=== PATIENT | female | born 1975 | race Hispanic/Latino ===

== ENCOUNTER → 2019-03-22 | Day surgery (SDC) | payer BC ==
[~2019-03-22] MED LIST: FENTANYL CITRATE/PF 100MCG/2 ML INJ ONE; HYOSCYAMINE 0.125 MG TAB ONE; LIDOCAINE HCL 2% LOCAL INJ 5 ML SDV VIAL INJ ONE; METOCLOPRAMIDE HCL 10 MG/2ML VIAL ONE; MIDAZOLAM HCL 2 MG/2 ML VIAL ONE; PANTOPRAZOLE 40 MG 10ML VIAL ONE; PROPOFOL IV EMULSION 10 MG/ML 50 ML VIAL ONE
--- OUTSIDE RECORDS SUMMARY | 2019-03-22 15:02 | XMS REPORT ---
[facility] Address Unknown Phone Unavailable Care Team Providers Care Esthetician Permanent Makeup Artist Name Role Phone SAPPHIRE MEJIA Unavailable Unavailable Problems This patient has no known problems. Allergies, Adverse Reactions, Alerts This patient has no known allergies or adverse reactions. Medications This patient has no known medications. Results Test Description Test Time Test Comments Text Results Atomic Results Result Comments OVA AND PARASITE EXAMINATION 2019-02-26 19:34:00 DIRECT SMEAR - O\T\P (BEAKER) (test nlri=141) No ova or parasites seen No ova or parasites seen CONCENTRATE SMEAR - O\T\P (BEAKER) (test sgjk=161) Positive - Ova/parasites seen; see Positive Ova & Parasite Exam for results. No ova or parasites seen TRICHROME SMEAR - O\T\P (BEAKER) (test ciyx=514) Positive - Ova/parasites seen; see Positive Ova & Parasite Exam for results. No ova or parasites seen Ova & Parasite screen positive. See Positive Ova & Parasite Exam for further results.STOOL CULTURE + SHIGA [id number] 16:16:00* Test Item Value Reference Range Comments CULTURE (BEAKER) (test qvmk=1399) No Salmonella, Shigella or Campylobacter isolated STOOL PATH [id number] 12:24:00* Test Item Value Reference Range Comments PATHOGEN EXAM CHARGED (BEAKER) (test upvf=6050) Done [id number] 07:59:00* Test Item Value Reference Range Comments MAGNESIUM (BEAKER) (test ehbv=581) 1.9 mg/dL 1.6-2.6 BASIC METABOLIC [id number] 07:59:00* Test Item Value Reference Range Comments SODIUM (BEAKER) (test ubml=280) 136 meq/L 136-145 POTASSIUM (BEAKER) (test wgcv=110) 3.9 meq/L 3.5-5.1 CHLORIDE (BEAKER) (test afrw=490) 107 meq/L 98-107 CO2 (BEAKER) (test ymtd=624) 23 meq/L 22-29 BLOOD UREA NITROGEN (BEAKER) (test vsfp=263) 10 mg/dL 7-21 CREATININE (BEAKER) (test gtqn=076) 0.63 mg/dL 0.57-1.25 GLUCOSE RANDOM (BEAKER) (test vajl=761) 101 mg/dL 70-105 CALCIUM (BEAKER) (test vqld=899) 9.2 mg/dL 8.4-10.2 EGFR (BEAKER) (test binn=1101) 104 mL/min/1.73 sq m ESTIMATED GFR IS NOT ACCURATE CREATININE CLEARANCE IN PREDICTING GLOMERULAR FILTRATION RATE. ESTIMATED GFR IS NOT APPLICABLE FOR DIALYSIS PATIENTS. HEPATIC FUNCTION [id number] 07:59:00* Test Item Value Reference Range Comments TOTAL PROTEIN (BEAKER) (test amsc=393) 6.8 gm/dL 6.0-8.3 ALBUMIN (BEAKER) (test wyjm=4623) 3.9 g/dL 3.5-5.0 BILIRUBIN TOTAL (BEAKER) (test kewc=436) 0.4 mg/dL 0.2-1.2 BILIRUBIN DIRECT (BEAKER) (test dlui=441) 0.2 mg/dL 0.1-0.5 ALKALINE PHOSPHATASE (BEAKER) (test gbqz=019) 68 U/L 40-150 AST (SGOT) (BEAKER) (test krgu=285) 13 U/L 5-34 ALT (SGPT) (BEAKER) (test doxe=829) 11 U/L 6-55 CBC W/PLT COUNT & AUTO [id number] 05:57:00* Test Item Value Reference Range Comments WHITE BLOOD CELL COUNT (BEAKER) (test bwud=362) 6.4 K/ L 3.5-10.5 RED BLOOD CELL COUNT (BEAKER) (test bpym=116) 4.36 M/ L 3.93-5.22 HEMOGLOBIN (BEAKER) (test zudb=123) 11.8 GM/DL 11.2-15.7 HEMATOCRIT (BEAKER) (test cavl=822) 36.9 % 34.1-44.9 MEAN CORPUSCULAR VOLUME (BEAKER) (test avxx=969) 84.6 fL 79.4-94.8 MEAN CORPUSCULAR HEMOGLOBIN (BEAKER) (test oqpm=990) 27.1 pg 25.6-32.2 MEAN CORPUSCULAR HEMOGLOBIN CONC (BEAKER) (test hcfv=786) 32.0 GM/DL 32.2-35.5 RED CELL DISTRIBUTION WIDTH (BEAKER) (test scor=924) 13.3 % 11.7-14.4 PLATELET COUNT (BEAKER) (test raez=783) 278 K/CU MM 150-450 MEAN PLATELET VOLUME (BEAKER) (test qfec=950) 9.9 fL 9.4-12.3 NUCLEATED RED BLOOD CELLS (BEAKER) (test lsfs=169) 0 /100 WBC 0-0 NEUTROPHILS RELATIVE PERCENT (BEAKER) (test jlfh=074) 59 % LYMPHOCYTES RELATIVE PERCENT (BEAKER) (test buax=023) 27 % MONOCYTES RELATIVE PERCENT (BEAKER) (test gvex=131) 8 % EOSINOPHILS RELATIVE PERCENT (BEAKER) (test caym=041) 5 % BASOPHILS RELATIVE PERCENT (BEAKER) (test jcvt=762) 1 % NEUTROPHILS ABSOLUTE COUNT (BEAKER) (test bnma=437) 3.76 K/ L 1.56-6.13 LYMPHOCYTES ABSOLUTE COUNT (BEAKER) (test xjqq=089) 1.75 K/ L 1.18-3.74 MONOCYTES ABSOLUTE COUNT (BEAKER) (test vgnc=882) 0.50 K/ L 0.24-0.36 EOSINOPHILS ABSOLUTE COUNT (BEAKER) (test vsqn=338) 0.32 K/ L 0.04-0.36 BASOPHILS ABSOLUTE COUNT (BEAKER) (test yvqj=234) 0.05 K/ L 0.01-0.08 IMMATURE GRANULOCYTES-RELATIVE PERCENT (BEAKER) (test allc=5522) 0 % 0-1 RAD, ABDOMEN SERIES W/ UPRIGHT PA [id number] 15:33:00Reason for exam:-> SBOShould this be performed at the bedside?->NoFINAL REPORT Abdominal series CLINICAL INDICATION: Small bowel obstruction COMPARISON: CT the abdomen and pelvis performed 02/19/2019 FINDINGS:Frontal view of the chest and upright and supine views of the abdomen were obtained. The heart is within normal limits of size. The lungs are clear. No pleural effusion or consolidation or pneumothorax. Surgical clips are seen in the right upper quadrant. No dilated loops of small or large bowel are identified. There is no free intraperitoneal air or air-fluid levels. Gas is seen distally in the rectum. There is a moderate amount of retained fecal material throughout the colon. IMPRESSION:Nonspecific nonobstructive bowel gas pattern. Signed: Michael Díaz MDReport Verified Date/Time: 02/21/2019 15:33:56 Reading Location: [facility] B1 [id number] Consult Reading Room A TOXIN [id number] 14:22:00* Test Item Value Reference Range Comments SHIGA TOXIN 1 (BEAKER) (test xaro=3445) Not detected Not detected SHIGA TOXIN 2 (BEAKER) (test wabq=3422) Not detected Not detected [id number] 08:20:00* Test Item Value Reference Range Comments MAGNESIUM (BEAKER) (test hriy=406) 1.8 mg/dL 1.6-2.6 BASIC METABOLIC [id number] 08:20:00* Test Item Value Reference Range Comments SODIUM (BEAKER) (test fgzq=804) 138 meq/L 136-145 POTASSIUM (BEAKER) (test nkdb=729) 3.6 meq/L 3.5-5.1 CHLORIDE (BEAKER) (test mimw=800) 107 meq/L 98-107 CO2 (BEAKER) (test kriu=751) 29 meq/L 22-29 BLOOD UREA NITROGEN (BEAKER) (test eoad=358) 6 mg/dL 7-21 CREATININE (BEAKER) (test zhkt=994) 0.64 mg/dL 0.57-1.25 GLUCOSE RANDOM (BEAKER) (test ilya=665) 92 mg/dL 70-105 CALCIUM (BEAKER) (test xkyp=400) 9.1 mg/dL 8.4-10.2 EGFR (BEAKER) (test kjhx=8447) 102 mL/min/1.73 sq m ESTIMATED GFR IS NOT ACCURATE CREATININE CLEARANCE IN PREDICTING GLOMERULAR FILTRATION RATE. ESTIMATED GFR IS NOT APPLICABLE FOR DIALYSIS PATIENTS. HEPATIC FUNCTION [id number] 08:20:00* Test Item Value Reference Range Comments TOTAL PROTEIN (BEAKER) (test hame=774) 6.8 gm/dL 6.0-8.3 ALBUMIN (BEAKER) (test obky=7187) 4.0 g/dL 3.5-5.0 BILIRUBIN TOTAL (BEAKER) (test uxil=307) 0.6 mg/dL 0.2-1.2 BILIRUBIN DIRECT (BEAKER) (test jjrm=193) 0.3 mg/dL 0.1-0.5 ALKALINE PHOSPHATASE (BEAKER) (test frnb=031) 67 U/L 40-150 AST (SGOT) (BEAKER) (test zuse=137) 14 U/L 5-34 ALT (SGPT) (BEAKER) (test yame=529) 10 U/L 6-55 CBC W/PLT COUNT & AUTO [id number] 07:58:00* Test Item Value Reference Range Comments WHITE BLOOD CELL COUNT (BEAKER) (test vznd=551) 7.3 K/ L 3.5-10.5 RED BLOOD CELL COUNT (BEAKER) (test ttkn=112) 4.41 M/ L 3.93-5.22 HEMOGLOBIN (BEAKER) (test exeg=169) 12.2 GM/DL 11.2-15.7 HEMATOCRIT (BEAKER) (test mepe=147) 38.3 % 34.1-44.9 MEAN CORPUSCULAR VOLUME (BEAKER) (test gjig=962) 86.8 fL 79.4-94.8 MEAN CORPUSCULAR HEMOGLOBIN (BEAKER) (test bzrn=321) 27.7 pg 25.6-32.2 MEAN CORPUSCULAR HEMOGLOBIN CONC (BEAKER) (test bclu=329) 31.9 GM/DL 32.2-35.5 RED CELL DISTRIBUTION WIDTH (BEAKER) (test nliu=107) 13.6 % 11.7-14.4 PLATELET COUNT (BEAKER) (test lxja=809) 286 K/CU MM 150-450 MEAN PLATELET VOLUME (BEAKER) (test sffn=490) 9.7 fL 9.4-12.3 NUCLEATED RED BLOOD CELLS (BEAKER) (test uisp=758) 0 /100 WBC 0-0 NEUTROPHILS RELATIVE PERCENT (BEAKER) (test bhla=845) 63 % LYMPHOCYTES RELATIVE PERCENT (BEAKER) (test zqvi=976) 26 % MONOCYTES RELATIVE PERCENT (BEAKER) (test rmyl=978) 6 % EOSINOPHILS RELATIVE PERCENT (BEAKER) (test ayyl=143) 4 % BASOPHILS RELATIVE PERCENT (BEAKER) (test ijbs=223) 1 % NEUTROPHILS ABSOLUTE COUNT (BEAKER) (test zboi=435) 4.62 K/ L 1.56-6.13 LYMPHOCYTES ABSOLUTE COUNT (BEAKER) (test ihte=345) 1.87 K/ L 1.18-3.74 MONOCYTES ABSOLUTE COUNT (BEAKER) (test vaqk=679) 0.46 K/ L 0.24-0.36 EOSINOPHILS ABSOLUTE COUNT (BEAKER) (test lwoj=046) 0.29 K/ L 0.04-0.36 BASOPHILS ABSOLUTE COUNT (BEAKER) (test avod=659) 0.04 K/ L 0.01-0.08 IMMATURE GRANULOCYTES-RELATIVE PERCENT (BEAKER) (test gvxa=9274) 0 % 0-1 [id number] 05:32:00* Test Item Value Reference Range Comments MAGNESIUM (BEAKER) (test dkdo=684) 1.7 mg/dL 1.6-2.6 BASIC METABOLIC [id number] 05:32:00* Test Item Value Reference Range Comments SODIUM (BEAKER) (test effe=740) 140 meq/L 136-145 POTASSIUM (BEAKER) (test rmkn=409) 3.3 meq/L 3.5-5.1 CHLORIDE (BEAKER) (test yumu=991) 108 meq/L 98-107 CO2 (BEAKER) (test lomi=370) 27 meq/L 22-29 BLOOD UREA NITROGEN (BEAKER) (test hkgo=676) 10 mg/dL 7-21 CREATININE (BEAKER) (test vkvj=139) 0.58 mg/dL 0.57-1.25 GLUCOSE RANDOM (BEAKER) (test bxvy=647) 91 mg/dL 70-105 CALCIUM (BEAKER) (test ohne=277) 8.4 mg/dL 8.4-10.2 EGFR (BEAKER) (test myyz=6220) 114 mL/min/1.73 sq m ESTIMATED GFR IS NOT ACCURATE CREATININE CLEARANCE IN PREDICTING GLOMERULAR FILTRATION RATE. ESTIMATED GFR IS NOT APPLICABLE FOR DIALYSIS PATIENTS. HEPATIC FUNCTION [id number] 05:32:00* Test Item Value Reference Range Comments TOTAL PROTEIN (BEAKER) (test yeec=246) 6.0 gm/dL 6.0-8.3 ALBUMIN (BEAKER) (test aqlr=4502) 3.6 g/dL 3.5-5.0 BILIRUBIN TOTAL (BEAKER) (test iupx=312) 0.8 mg/dL 0.2-1.2 BILIRUBIN DIRECT (BEAKER) (test wumb=936) 0.3 mg/dL 0.1-0.5 ALKALINE PHOSPHATASE (BEAKER) (test wdsx=049) 65 U/L 40-150 AST (SGOT) (BEAKER) (test hbmk=040) 14 U/L 5-34 ALT (SGPT) (BEAKER) (test rxma=979) 11 U/L 6-55 CBC W/PLT COUNT & AUTO [id number] 04:56:00* Test Item Value Reference Range Comments WHITE BLOOD CELL COUNT (BEAKER) (test bubv=783) 7.5 K/ L 3.5-10.5 RED BLOOD CELL COUNT (BEAKER) (test ydjs=209) 4.40 M/ L 3.93-5.22 HEMOGLOBIN (BEAKER) (test zxfr=876) 12.0 GM/DL 11.2-15.7 HEMATOCRIT (BEAKER) (test dfhs=645) 37.7 % 34.1-44.9 MEAN CORPUSCULAR VOLUME (BEAKER) (test mdlc=306) 85.7 fL 79.4-94.8 MEAN CORPUSCULAR HEMOGLOBIN (BEAKER) (test mhgt=877) 27.3 pg 25.6-32.2 MEAN CORPUSCULAR HEMOGLOBIN CONC (BEAKER) (test nuvf=732) 31.8 GM/DL 32.2-35.5 RED CELL DISTRIBUTION WIDTH (BEAKER) (test fyql=648) 13.6 % 11.7-14.4 PLATELET COUNT (BEAKER) (test prhp=672) 273 K/CU MM 150-450 MEAN PLATELET VOLUME (BEAKER) (test tqjo=034) 10.0 fL 9.4-12.3 NUCLEATED RED BLOOD CELLS (BEAKER) (test civr=785) 0 /100 WBC 0-0 NEUTROPHILS RELATIVE PERCENT (BEAKER) (test crij=271) 64 % LYMPHOCYTES RELATIVE PERCENT (BEAKER) (test grcy=776) 24 % MONOCYTES RELATIVE PERCENT (BEAKER) (test fpws=072) 7 % EOSINOPHILS RELATIVE PERCENT (BEAKER) (test fpcq=983) 4 % BASOPHILS RELATIVE PERCENT (BEAKER) (test ofml=922) 1 % NEUTROPHILS ABSOLUTE COUNT (BEAKER) (test osbc=989) 4.80 K/ L 1.56-6.13 LYMPHOCYTES ABSOLUTE COUNT (BEAKER) (test gqmw=745) 1.80 K/ L 1.18-3.74 MONOCYTES ABSOLUTE COUNT (BEAKER) (test dyjn=599) 0.53 K/ L 0.24-0.36 EOSINOPHILS ABSOLUTE COUNT (BEAKER) (test xnox=113) 0.26 K/ L 0.04-0.36 BASOPHILS ABSOLUTE COUNT (BEAKER) (test whgc=014) 0.04 K/ L 0.01-0.08 IMMATURE GRANULOCYTES-RELATIVE PERCENT (BEAKER) (test gdle=1201) 0 % 0-1 CT, [id number] 03:24:00FINAL REPORT EXAM: CT of the abdomen and pelvis, with contrast CLINICAL HISTORY: Abdominal pain. Intractable nausea and vomiting. TECHNIQUE: CT of the abdomen and pelvis was performed with intravenous contrast administration. This exam was performed according to our departmental dose optimization program which includes automated exposure control, adjustment of the mA and/or kV according to patient's size and/or use of iterative reconstructive technique. COMPARISON: None FINDINGS: LOWER CHEST: Within normal limits.LIVER: Within normal limits.BILE DUCTS: Within normal limits.GALL BLADDER: Status post cholecystectomy.PANCREAS: Within normal limits.SPLEEN: Within normal limits.ADRENALS: 1.3 x 1.1 cm left adrenal gland nodule (68 HU). Unremarkable right adrenal gland.KIDNEYS/URETERS: Within normal limits. URINARY BLADDER: Within normal limits.REPRODUCTIVE ORGANS: Within normal limits. BOWEL/MESENTERY: Multiple dilated fluid-filled small bowel loops which transition to decompressed small bowel in the right lower quadrant consistent with a small bowel obstruction. The transition point is in the anterior lower abdomen where there is focal narrowing of small bowel (axial image 59 - 60 and coronal image 35-36). Diffuse mural thickening of multiple ileal loops distal to the obstruction consistent with an enteritis (infectious, inflammatory or ischemic). Associated mesenteric congestion and small interloop ascites Small hiatal hernia. Colonic diverticulosis without acute diverticulitis. Normal appendix. PERITONEUM/RETROPERITONEUM: Small abdominal and pelvic ascites. No free air or fluid collection. VESSELS: Within normal limits. LYMPH NODES: No abdominal or pelvic lymphadenopathy.SOFT TISSUES: Small fat-containing umbilical hernia.BONES: Within normal limits. IMPRESSION:Status post cholecystectomy.Small bowel obstruction (early complete or partial) secondary to an enteritis (infectious, inflammatory or ischemic).Small abdominal and pelvic ascites. No fr ee intraperitoneal air.Colonic diverticulosis without acute diverticulitis. Smal l hiatal hernia.1.3 cm indeterminate left adrenal gland nodule for which a nonem ergent follow-up adrenal protocol CT/MRI is recommended. Signed: Dai Mcdonald Verified Date/Time: 02/19/2019 03:24:55 EN, [id number] 02:33:00* Test Item Value Reference Range Comments TEST URINE (BEAKER) (test roel=160) Negative URINALYSIS W/ REFLEX URINE [id number] 23:22:00* Test Item Value Reference Range Comments COLOR (BEAKER) (test rtpj=086) Light Yellow CLARITY (BEAKER) (test mfxo=250) Hazy SPECIFIC GRAVITY UA (BEAKER) (test tqmy=384) 1.013 1.001-1.035 PH UA (BEAKER) (test gipz=039) 7.5 5.0-8.0 PROTEIN UA (BEAKER) (test awqq=034) 10 mg/dL Negative GLUCOSE UA (BEAKER) (test xumn=409) Negative Negative KETONES UA (BEAKER) (test dgyi=617) Negative Negative BILIRUBIN UA (BEAKER) (test ooky=073) Negative Negative BLOOD UA (BEAKER) (test ynoa=020) Moderate Negative NITRITE UA (BEAKER) (test guhk=428) Negative Negative LEUKOCYTE ESTERASE UA (BEAKER) (test lyjg=842) Negative Negative UROBILINOGEN UA (BEAKER) (test ersa=428) 0.2 mg/dL 0.2-1.0 RBC UA (BEAKER) (test sioh=866) 4 /HPF WBC UA (BEAKER) (test tcbo=771) 1 /HPF SQUAMOUS EPITHELIAL (BEAKER) (test fdvn=451) 11 /HPF AMORPHOUS CRYSTALS (BEAKER) (test pkeg=9654) Rare YEAST (BEAKER) (test ssxc=0209) Few SOURCE(BEAKER) (test dlrs=8235) [id number] 23:20:00* Test Item Value Reference Range Comments LIPASE (BEAKER) (test oeov=707) 10 U/L 8-78 BASIC METABOLIC [id number] 23:20:00* Test Item Value Reference Range Comments SODIUM (BEAKER) (test klcu=103) 138 meq/L 136-145 POTASSIUM (BEAKER) (test ldcl=999) 3.6 meq/L 3.5-5.1 CHLORIDE (BEAKER) (test hzdg=846) 104 meq/L 98-107 CO2 (BEAKER) (test prpq=233) 27 meq/L 22-29 BLOOD UREA NITROGEN (BEAKER) (test hgps=538) 17 mg/dL 7-21 CREATININE (BEAKER) (test lqtn=918) 0.73 mg/dL 0.57-1.25 GLUCOSE RANDOM (BEAKER) (test jnbs=819) 114 mg/dL 70-105 CALCIUM (BEAKER) (test oiys=125) 9.7 mg/dL 8.4-10.2 EGFR (BEAKER) (test lbpv=8877) 87 mL/min/1.73 sq m ESTIMATED GFR IS NOT ACCURATE CREATININE CLEARANCE IN PREDICTING GLOMERULAR FILTRATION RATE. ESTIMATED GFR IS NOT APPLICABLE FOR DIALYSIS PATIENTS. HEPATIC FUNCTION [id number] 23:20:00* Test Item Value Reference Range Comments TOTAL PROTEIN (BEAKER) (test yocn=845) 7.4 gm/dL 6.0-8.3 ALBUMIN (BEAKER) (test gpqe=5770) 4.3 g/dL 3.5-5.0 BILIRUBIN TOTAL (BEAKER) (test wftu=916) 0.3 mg/dL 0.2-1.2 BILIRUBIN DIRECT (BEAKER) (test sjex=786) 0.1 mg/dL 0.1-0.5 ALKALINE PHOSPHATASE (BEAKER) (test hhck=558) 78 U/L 40-150 AST (SGOT) (BEAKER) (test zuau=689) 14 U/L 5-34 ALT (SGPT) (BEAKER) (test abpa=927) 11 U/L 6-55 CBC W/PLT COUNT & AUTO [id number] 23:05:00* Test Item Value Reference Range Comments WHITE BLOOD CELL COUNT (BEAKER) (test jxor=122) 9.3 K/ L 3.5-10.5 RED BLOOD CELL COUNT (BEAKER) (test iydt=035) 4.91 M/ L 3.93-5.22 HEMOGLOBIN (BEAKER) (test rmqu=877) 13.3 GM/DL 11.2-15.7 HEMATOCRIT (BEAKER) (test uuoy=679) 41.6 % 34.1-44.9 MEAN CORPUSCULAR VOLUME (BEAKER) (test emzj=724) 84.7 fL 79.4-94.8 MEAN CORPUSCULAR HEMOGLOBIN (BEAKER) (test tunf=082) 27.1 pg 25.6-32.2 MEAN CORPUSCULAR HEMOGLOBIN CONC (BEAKER) (test obhv=616) 32.0 GM/DL 32.2-35.5 RED CELL DISTRIBUTION WIDTH (BEAKER) (test jxcb=050) 13.4 % 11.7-14.4 PLATELET COUNT (BEAKER) (test owhi=980) 300 K/CU MM 150-450 MEAN PLATELET VOLUME (BEAKER) (test whpc=654) 10.0 fL 9.4-12.3 NUCLEATED RED BLOOD CELLS (BEAKER) (test jrnn=422) 0 /100 WBC 0-0 NEUTROPHILS RELATIVE PERCENT (BEAKER) (test gscd=542) 75 % LYMPHOCYTES RELATIVE PERCENT (BEAKER) (test vktu=601) 16 % MONOCYTES RELATIVE PERCENT (BEAKER) (test nhep=042) 6 % EOSINOPHILS RELATIVE PERCENT (BEAKER) (test qyoi=650) 2 % BASOPHILS RELATIVE PERCENT (BEAKER) (test ceaj=525) 1 % NEUTROPHILS ABSOLUTE COUNT (BEAKER) (test xdsx=294) 6.98 K/ L 1.56-6.13 LYMPHOCYTES ABSOLUTE COUNT (BEAKER) (test hash=054) 1.50 K/ L 1.18-3.74 MONOCYTES ABSOLUTE COUNT (BEAKER) (test nsgy=941) 0.54 K/ L 0.24-0.36 EOSINOPHILS ABSOLUTE COUNT (BEAKER) (test wnti=797) 0.20 K/ L 0.04-0.36 BASOPHILS ABSOLUTE COUNT (BEAKER) (test ndst=768) 0.06 K/ L 0.01-0.08 IMMATURE GRANULOCYTES-RELATIVE PERCENT (BEAKER) (test bzei=3591) 0 % 0-1 DIAG MAMM BILATERAL DAVID CAD [id number] 11:54:30 - DIAG MAMM BILATERAL DAVID CAD DIGITALBILATERAL DIGITAL DIAGNOSTIC MAMMOGRAM 3D/2D WITH CAD: 10/06/2018CLINICAL: Bilateral breast pain. Digital breast tomosynthesis was performed in addition to routine CC and MLO views. Current mammographic images were evaluated by either a Impact M-Vu or a [employer] ImageChecker CAD (computer aided detection system). Comparison is made to exams dated 12/09/2017 mammogram, 12/06/2016 mammogram, and 02/25/2011 mammogram - [facility]-. The tissue of both breasts is heterogeneously dense. This may lower the sensitivity of mammography. No suspicious mass, architectural distortion, malignant type calcification, or lymph node abnormality detected. Breast architecture is stable compared to prior exams.IMPRESSION: NEGATIVEThere is no mammographic kofi dence of malignancy. Resume annual screening mammography in one year. Hui Mortensen M.D. ar/:10/06/2018 11:54:30 [employer]el [employer] Mechanic: Dorothy hamlin , [facility]-FWletter sent: BIRADS 1-2 Normal Mammogram BI-RA DS: 1 Negative
--- OUTSIDE RECORDS SUMMARY | 2019-03-22 15:02 | XMS REPORT | Clinical Summary ---
Author Author GARFIELD [facility] Address Unknown Phone Unavailable Care Team Providers Care Clinical Trainer Name Role Phone Pcp, No PCP Unavailable Allergies No Known Allergies Medications End Date Status Medication Sig Dispensed Refills Start Date 02/17/2020 Active acetaminophen (TYLENOL) Take 2 30 tablet 0 325 MG tablet tablets (650 9 mg total) by mouth every 6 (six) hours as needed for Pain for up to 360 days. 03/24/2019 Active magnesium oxide (MAG-OX) Take 1 tablet 30 tablet 0 400 mg (241.3 mg (400 mg 9 magnesium) tablet total) by mouth daily for 30 days. 03/24/2019 Active polyethylene glycol Take 17 g by 14 each 0 (GLYCOLAX) 17 gram packet mouth daily 9 for 30 days. 03/24/2019 Active senna-docusate (SENOKOT Take 2 60 tablet 0 S) 8.6-50 mg per tablet tablets by 9 mouth nightly for 30 days. 03/24/2019 Active omeprazole (PRILOSEC) 20 Take 1 30 capsule 0 MG capsule capsule (20 9 mg total) by mouth daily for 30 days. Active Problems Problem Noted Date Abdominal cramping 02/19/2019 Intractable vomiting with nausea, unspecified vomiting type 02/19/2019 SBO (small bowel obstruction) 02/19/2019 Encounters Care Team Description Date Type Specialty 02/19/2019 Travel Benita, DO Lily Gutierrez Christopher Scott, MD Hoffman, Maria, MD SBO (small bowel obstruction) ([facility]) (Primary Dx); Intractable vomiting with nausea, unspecified vomiting type; Abdominal cramping; Hypokalemia; Hypomagnesemia 02/18/2019 [facility] General Internal Medicine - Encounter 02/22/2019 after 03/21/2018 Social History Date Tobacco Use Types Packs/Day Years Used Never Assessed Sex Assigned at Date Recorded Not on file Industry Job Start Date Occupation Not on file Not on file Not on file Travel End Travel History Travel Start No recent travel history available. Last Filed Vital Signs Time Taken Vital Sign Reading 02/22/2019 8:25 AM CDT Blood Pressure 119/67 02/22/2019 8:25 AM CDT Pulse 81 02/22/2019 8:25 AM CDT Temperature 35.8 C (96.5 F) 02/22/2019 8:25 AM CDT Respiratory Rate 18 02/22/2019 8:25 AM CDT Oxygen Saturation 96% - Inhaled Oxygen - Concentration 02/19/2019 8:47 AM CDT Weight 86.3 kg (190 lb 3.2 oz) 02/18/2019 10:28 PM CDT Height 154.9 cm (5' 1") 02/19/2019 8:47 AM CDT Body Mass Index 35.94 Plan of Treatment Not on file Procedures Comments Procedure Name Priority Date/Time Associated Diagnosis CBC W/PLT COUNT & AUTO Routine 02/22/2019 DIFFERENTIAL 5:28 AM CDT MAGNESIUM Routine 02/22/2019 5:28 AM CDT HEPATIC FUNCTION PANEL Routine 02/22/2019 5:28 AM CDT CBC W/PLT COUNT & AUTO Routine 02/22/2019 DIFFERENTIAL 5:28 AM CDT BASIC METABOLIC PANEL (7) Routine 02/22/2019 5:28 AM CDT XR ABDOMEN ACUTE SERIES Routine 02/21/2019 FLAT W UPRIGHT CHEST OR 3:20 PM CDT DECUBS CBC W/PLT COUNT & AUTO Routine 02/21/2019 DIFFERENTIAL 7:22 AM CDT MAGNESIUM Routine 02/21/2019 7:22 AM CDT HEPATIC FUNCTION PANEL Routine 02/21/2019 7:22 AM CDT CBC W/PLT COUNT & AUTO Routine 02/21/2019 DIFFERENTIAL 7:22 AM CDT BASIC METABOLIC PANEL (7) Routine 02/21/2019 7:22 AM CDT STOOL PATH CHARGE Routine 02/20/2019 10:40 PM CDT POSITIVE OVA & PARASITE Routine 02/20/2019 EXAM 10:40 PM CDT SHIGA TOXIN SCREEN Routine 02/20/2019 10:40 PM CDT OVA AND PARASITE Routine 02/20/2019 EXAMINATION 10:40 PM CDT STOOL CULTURE + SHIGA Routine 02/20/2019 TOXIN 10:40 PM CDT CBC W/PLT COUNT & AUTO Routine 02/20/2019 DIFFERENTIAL 4:00 AM CDT MAGNESIUM Routine 02/20/2019 4:00 AM CDT HEPATIC FUNCTION PANEL Routine 02/20/2019 4:00 AM CDT CBC W/PLT COUNT & AUTO Routine 02/20/2019 DIFFERENTIAL 4:00 AM CDT BASIC METABOLIC PANEL (7) Routine 02/20/2019 4:[address] ABDOMEN/PELVIS WITH IV STAT 02/19/2019 CONTRAST 2:54 AM CDT CBC W/PLT COUNT & AUTO STAT 02/18/2019 DIFFERENTIAL 10:53 PM CDT SCREEN, URINE STAT 02/18/2019 10:53 PM CDT URINALYSIS W/ REFLEX STAT 02/18/2019 URINE CULTURE 10:53 PM CDT HEPATIC FUNCTION PANEL STAT 02/18/2019 10:53 PM CDT BASIC METABOLIC PANEL (7) STAT 02/18/2019 10:53 PM CDT CBC W/PLT COUNT & AUTO STAT 02/18/2019 DIFFERENTIAL 10:53 PM CDT LIPASE STAT 02/18/2019 10:53 PM CDT after 03/21/2018 Results * CBC with platelet count + automated diff (02/22/2019 5:28 AM CDT) Only the most recent of 4 results within the time period is included. WBC 6.4 3.5 - 10.5 K/L [facility] RBC 4.36 3.93 - 5.22 M/L [facility] Hemoglobin 11.8 11.2 - 15.7 GM/DL [facility] Hematocrit 36.9 34.1 - 44.9 % [facility] MCV 84.6 79.4 - 94.8 fL [facility] MCH 27.1 25.6 - 32.2 pg [facility] MCHC 32.0 (L) 32.2 - 35.5 GM/DL [facility] RDW 13.3 11.7 - 14.4 % [facility] Platelets 278 150 - 450 K/CU MM [facility] MPV 9.9 9.4 - 12.3 fL [facility] nRBC 0 0 - 0 /100 WBC [facility] % Neutros 59 % [facility] % Lymphs 27 % [facility] % Monos 8 % [facility] % Eos 5 % [facility] % Baso 1 % [facility] # Neutros 3.76 1.56 - 6.13 K/L [facility] # Lymphs 1.75 1.18 - 3.74 K/L [facility] # Monos 0.50 (H) 0.24 - 0.36 K/L [facility] # Eos 0.32 0.04 - 0.36 K/L [facility] # Baso 0.05 0.01 - 0.08 K/L [facility] Immature 0 0 - 1 % [facility] Granulocytes-[facility] Specimen Blood Performing Organization Address City/State/Zipcode Phone Number [address] [address] [facility] * Magnesium (02/22/2019 5:28 AM CDT) Only the most recent of 3 results within the time period is included. Magnesium 1.9 1.6 - 2.6 mg/dL [facility] Specimen Blood Performing Organization Address [facility] [place] [address] [phone] [place] [address] * Hepatic function panel (02/22/2019 5:28 AM CDT) Only the most recent of 4 results within the time period is included. Protein, Total 6.8 6.0 - 8.3 gm/dL [facility] Albumin 3.9 3.5 - 5.0 g/dL [facility] Total Bilirubin 0.4 0.2 - 1.2 mg/dL [facility] Bilirubin, Direct 0.2 0.1 - 0.5 mg/dL [facility] Alkaline Phosphatase 68 40 - 150 U/L [facility] AST 13 5 - 34 U/L [facility] ALT 11 6 - 55 U/L [facility] Specimen Blood Performing Organization Address City/[facility] Phone Number [address] [address] [phone] [place] [address] * Basic metabolic panel (02/22/2019 5:28 AM CDT) Only the most recent of 4 results within the time period is included. Sodium 136 136 - 145 meq/L [facility] Potassium 3.9 3.5 - 5.1 meq/L [facility] Chloride 107 98 - 107 meq/L [facility] CO2 23 22 - 29 meq/L [facility] BUN 10 7 - 21 mg/dL [facility] Creatinine 0.63 0.57 - 1.25 mg/dL [facility] Glucose 101 70 - 105 mg/dL [facility] Calcium 9.2 8.4 - 10.2 mg/dL [facility] EGFR 104Comment: ESTIMATED GFR IS mL/min/1.73 sq m [facility] NOT ACCURATE CREATININE [facility] CLEARANCE IN PREDICTING GLOMERULAR FILTRATION RATE. ESTIMATED GFR IS NOT APPLICABLE FOR DIALYSIS PATIENTS. Specimen Blood Performing Organization Address City/State/Zipcode Phone Number [facility] [address] [place] [address] [facility] * XR abdomen acute series flat/uprt with uprt pa chest and/or decubs (02/21/2019 3:20 PM CDT) Specimen Narrative Performed At FINAL REPORT [facility] Abdominal series CLINICAL INDICATION: Small bowel obstruction COMPARISON: CT the abdomen and pelvis performed 02/19/2019 FINDINGS: Frontal view of the chest and upright and [...] of retained fecal material throughout the colon. IMPRESSION: Nonspecific nonobstructive bowel gas pattern. Signed: Michael Leyva MD Report Verified Date/Time:02/21/2019 15:33:56 Reading Location: [facility] B1 [id number] Consult Reading Room Procedure Note Interface, External Ris In - 02/21/2019 3:36 PM CDT FINAL REPORT Abdominal series CLINICAL INDICATION: Small bowel obstruction COMPARISON: CT the abdomen and pelvis performed 02/19/2019 FINDINGS: Frontal view of the chest and upright and [...] of retained fecal material throughout the colon. IMPRESSION: Nonspecific nonobstructive bowel gas pattern. Signed: Michael Leyva MD Report Verified Date/Time: 02/21/2019 15:33:56 Reading Location: [address] Consult Reading Room Performing Organization Address [facility] Phone Number [facility] * STOOL PATH CHARGE (02/20/2019 10:40 PM CDT) Pathogen exam charged Done [facility] Specimen Stool Performing Organization Address [facility] Phone Number [address] [address] [phone] [place] [address] * Shiga Toxin Screen (02/20/2019 10:40 PM CDT) Shiga toxin 1 Not detected Not detected [facility] Shiga toxin 2 Not detected Not detected [facility] Specimen Stool Performing Organization Address [facility] Cent[facility]ode Phone Number [address] [address] [facility] * Positive Ova & Parasite Exam (02/20/2019 10:40 PM CDT) Result Few Blastocystis hominis [facility] (A)Comment: * - Blastocystis [facility] species Specimen Stool Performing Organization Address [facility] Phone Number [address] [address] [facility] * Ova and Parasite Examination (02/20/2019 10:40 PM CDT) O&P Direct Smear No ova or parasites seen No ova or parasites seen [facility] O&P Concentrate Smear Positive - Ova/parasites seen; No ova or parasites seen [facility] see Positive Ova & Parasite [facility] Exam for results. (A) O&P Trichrome Smear Positive - Ova/parasites seen; No ova or parasites seen [facility] see Positive Ova & Parasite [facility] Exam for results. (A) Specimen Stool Narrative Performed At [facility] Ova & Parasite screen positive. See Positive Ova & Parasite Exam for further [facility] results. Performing Organization Address City/State/Zipcode Phone Number [facility] [address] [place] [address] [facility] * Stool culture + Shiga toxin (02/20/2019 10:40 PM CDT) Result No Salmonella, Shigella or [facility] Campylobacter isolated [facility] Specimen Stool Performing Organization Address City/State/Zipcode Phone Number [facility] [address] [place] [address] [facility] * CT abdomen/pelvis with IV contrast (02/19/2019 2:54 AM CDT) Specimen Narrative Performed At FINAL REPORT [employer] EXAM: CT of the abdomen and pelvis, with contrast CLINICAL HISTORY: Abdominal pain. Intractable nausea and vomiting. TECHNIQUE: CT of the abdomen and pelvis was performed with intravenous contrast administration.This exam was performed according to our departmental dose optimization program which includes automated exposure control, adjustment of the mA and/or kV according to patient's size and/or use of iterative reconstructive technique. COMPARISON:None FINDINGS: LOWER CHEST: Within normal limits. LIVER: Within normal limits. BILE DUCTS: Within normal limits. GALL BLADDER: Status post cholecystectomy. PANCREAS: Within normal limits. SPLEEN: Within normal limits. ADRENALS: 1.3 x 1.1 cm left adrenal gland nodule (68 HU). Unremarkable right adrenal gland. KIDNEYS/URETERS: Within normal limits. URINARY BLADDER: Within normal limits. REPRODUCTIVE ORGANS: Within normal limits. BOWEL/MESENTERY: Multiple dilated [...] limits. LYMPH NODES: No abdominal or pelvic lymphadenopathy. SOFT TISSUES: Small fat-containing umbilical hernia. BONES: Within normal limits. IMPRESSION: Status post cholecystectomy. Small bowel obstruction (early complete or partial) secondary to an enteritis (infectious, inflammatory or ischemic). Small abdominal and pelvic ascites. No free intraperitoneal air. Colonic diverticulosis without acute diverticulitis. Small hiatal hernia. 1.3 cm indeterminate left adrenal gland nodule for which a nonemergent follow-up adrenal protocol CT/MRI is recommended. Signed: Dai Mcdonald MD Report Verified Date/Time:02/19/2019 03:24:55 Procedure Note Interface, External Ris In - 02/19/2019 3:27 AM CDT FINAL REPORT EXAM: CT of the abdomen and [...] COMPARISON: None FINDINGS: LOWER CHEST: Within normal limits. LIVER: Within normal limits. BILE DUCTS: Within normal limits. GALL BLADDER: Status post cholecystectomy. PANCREAS: Within normal limits. SPLEEN: Within normal limits. ADRENALS: 1.3 x 1.1 cm left adrenal gland nodule (68 HU). Unremarkable right adrenal gland. KIDNEYS/URETERS: Within normal limits. URINARY BLADDER: Within normal limits. REPRODUCTIVE ORGANS: Within normal limits. BOWEL/MESENTERY: Multiple dilated [...] limits. LYMPH NODES: No abdominal or pelvic lymphadenopathy. SOFT TISSUES: Small fat-containing umbilical hernia. BONES: Within normal limits. IMPRESSION: Status post cholecystectomy. Small bowel obstruction (early complete or partial) secondary to an enteritis (infectious, inflammatory or ischemic). Small abdominal and pelvic ascites. No free intraperitoneal air. Colonic diverticulosis without acute diverticulitis. Small hiatal hernia. 1.3 cm indeterminate left adrenal gland nodule for which a nonemergent follow-up adrenal protocol CT/MRI is recommended. Signed: Dai Mcdonald MD Report Verified Date/Time: 02/19/2019 03:24:55 Performing Organization Address City/State/Zipcode Phone Number [facility] * Urinalysis w/Microscopic + Reflex to Culture (02/18/2019 10:53 PM CDT) Color, UA Light Yellow [facility] Clarity, UA Hazy [facility] Specific [place], UA 1.013 1.001 - 1.035 [facility] pH, UA 7.5 5.0 - 8.0 [facility] Protein, UA 10 mg/dL (A) Negative [facility] Glucose, UA Negative Negative [facility] Ketones, UA Negative Negative [facility] Bilirubin, UA Negative Negative [facility] Blood, UA Moderate (A) Negative [facility] Nitrite, UA Negative Negative [facility] Leukocytes, UA Negative Negative [facility] Urobilinogen, UA 0.2 0.2 - 1.0 mg/dL [facility] RBC, UA 4 /HPF [facility] WBC, UA 1 /HPF [facility] Squam Epithel, UA 11 /HPF [facility] Amorphous Crystals Rare [facility] Yeast Few [facility] Specimen Source [facility] Specimen Urine Performing Organization Address [facility] Phone Number [address] [address] [facility] * screen, urine (02/18/2019 10:53 PM CDT) Preg Test, Ur Negative [facility] Specimen Urine Performing Organization Address [facility] Phone Number [address] [address] [facility] * Lipase (02/18/2019 10:53 PM CDT) Lipase 10 8 - 78 U/L [facility] Specimen Blood Performing Organization Address [facility] Phone Number [address] [address] [facility] after 03/21/2018 Insurance Payer Benefit Subscriber ID Type Phone Address Plan / Group BLUE CROSS/BLUE [employer]IELD BCBS PPO xxxxxxxxxxxx PPO [phone] [address] [place] [address] CHOICE Advance Directives For more information, please contact: [address] [address] Date Inactivated Comments Code Status Date Activated 02/22/2019 1:47 PM Full Code 02/19/2019 5:25 AM This code status was determined by: Patient
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
[2019-03-22 19:45] VITALS: BP 121/88
--- NOTE | 2019-03-22 19:48 | Operative Report ---
DATE OF PROCEDURE: 03/22/2019 SURGEON: Gustavo Beltrán MD PROCEDURES: Esophagogastroduodenoscopy with balloon dilatation of pyloric channel stricture and biopsies and colonoscopy with polypectomy. INDICATION FOR EGD: Upper abdominal pain, bloating, early satiety. INDICATIONS FOR COLONOSCOPY: Sense of incomplete evacuation, constipation. MEDICATIONS: The patient was done under MAC, please see anesthesiologist's note. PROCEDURE IN DETAIL: With the patient in left lateral decubitus position, a flexible fiberoptic Olympus gastroscope was introduced into the esophagus under direct visualization without any difficulty. There was some patchy erythema noted in distal esophagus. A single erosion was also noted in the distal esophagus. The scope was then advanced with ease into the stomach. Mucosa overlying the antrum and the body revealed some patchy erythema and low-grade to moderate edema and biopsies were obtained, sent to stain for H. pylori. The pyloric channel was somewhat stenotic and that was dilated to size 20 mm per TTS balloon dilators. The scope was then advanced with ease into the second portion of the duodenum. Biopsies were obtained from the second portion and duodenal bulb to rule out sprue. The scope was then withdrawn back into the stomach and retroflexed. The mucosa overlying the fundus and cardia appeared to be within normal limits. The scope was then straightened out, it was subsequently withdrawn. The patient tolerated the procedure well. IMPRESSION: 1. Distal erosive esophagitis. 2. Gastritis, biopsied. Biopsies sent to stain for Helicobacter pylori. 3. Pyloric channel somewhat stenotic, dilated to size 20 mm per TTS balloon dilators. 4. Rule out sprue. PLAN: Follow up histology. Initiate Protonix 40 mg one p.o. q.a.m. a.c. PROCEDURE IN DETAIL: The patient was then turned around and after adequate lubrication of the anal canal, flexible fiberoptic Olympus colonoscope was inserted into the rectum with ease and advanced all the way to the cecum. Mucosa overlying the cecum appeared to be within normal limits. One polyp was snared from the ascending colon. In addition, a polyp was snared from the transverse colon. One polyp was hot biopsied from the descending colon. Diverticular disease was noted to involve the distal descending and the sigmoid colon. One minute hyperplastic-appearing polyp was hot biopsied from the rectum. The scope was then retroflexed into the distal rectum and small internal hemorrhoids were noted, none of which was actively bleeding. The scope was then straightened out, it was subsequently withdrawn. The patient tolerated the procedure well. IMPRESSION: 1. Ascending colon polyp, snared. 2. Transverse colon polyp, snared. 3. Descending colon polyp, hot biopsied. 4. Diverticulosis. 5. Rectal polyp, minute, hot biopsied. 6. Internal hemorrhoids, none actively bleeding. PLAN: Follow up histology. Initiate high-fiber, low-fat diet. Initiate high-fiber supplement. Start Visbiome one p.o. b.i.d. The patient might benefit from a followup colonoscopy in 3 years. Gustavo Beltrán MD [facility] [place][id number] cc: Radha Estrada MD
== END | disposition home or self-care (01) ==
LOC: OR 15:00
PROVIDERS: ATTEND Internal Medicine Gastroenterology
DX: K29.70 Gastritis, unspecified, without bleeding (principal); D12.2 Benign neoplasm of ascending colon; D12.3 Benign neoplasm of transverse colon; D12.4 Benign neoplasm of descending colon; K62.1 Rectal polyp; K21.9 Gastro-esophageal reflux disease without esophagitis; K22.10 Ulcer of esophagus without bleeding; K59.00 Constipation, unspecified; K57.30 Diverticulosis of large intestine without perforation or abscess without bleeding; K64.8 Other hemorrhoids; D72.820 Lymphocytosis (symptomatic); R03.0 Elevated blood-pressure reading, without diagnosis of hypertension; F32.9 Major depressive disorder, single episode, unspecified; F41.9 Anxiety disorder, unspecified; Z68.32 Body mass index [BMI] 32.0-32.9, adult
CPT/HCPCS: 43239; 43245; 45384; 45385; 81025; C1726; C9113; J2001; J2250; J2704; J2765; J3010; 43233